=== PATIENT | male | born 1995 | race Caucasian/White ===

== ENCOUNTER 2017-05-07 12:41 | Emergency (ER) | payer OTHER ==
[2017-05-07 13:25] VITALS: RESP 16; TEMP 98.1; O2SAT 96
--- NOTE | 2017-05-07 14:08 | EDPHY ---
H & P Stated Complaint: R scrotal/testicular pain since this am;no inj;no discharge/ dysuria HPI/ROS: CHIEF COMPLAINT: Testicular pain HISTORY OF PRESENT ILLNESS: Patient complains of right testicular pain. This started this morning when he awoke 8:15 a.m.. Constant duration. Currently rated a 4/10. Does not radiate. No dysuria. No urethral discharge. No erythema or edema. No trauma or injury. He is not sexually active, and has not ever had sexual intercourse. No abdominal pain. No flank pain. No other associated complaints or modifying factors. No previous history of torsion. REVIEW OF SYSTEMS: Ten systems reviewed and are negative unless otherwise noted in the HPI PAST MEDICAL HISTORY: Denies any medical history. No previous surgical history SOCIAL HISTORY: Nonsmoker FAMILY HISTORY: Noncontributory EXAMINATION General Appearance: Alert, no distress Head: normocephalic, atraumatic Eyes: Pupils equal and round, no conjunctival pallor or injection ENT, Mouth: Mucous membranes moist Neck: Normal inspection, supple, non-tender Respiratory: No retractions or distress. Cardiovascular: Regular rate and rhythm. Pulses intact distally symmetrically Gastrointestinal: Abdomen is soft and nontender : Normal appearance of the scrotum and penis. No discharge of the urethral meatus. No erythema or edema. Cremasteric reflex is intact symmetrically. Back: non-tender, no bony abnormalities Neurological: A&O, nonfocal, normal gait Skin: Warm and dry, no rash Extremities: Nontender, no pedal edema Psychiatric: Mood and affect normal DIFFERENTIAL DIAGNOSES: Including but not limited to torsion, hydrocele, varicocele, epididymitis MDM: 2:07 p.m. Right testicular pain that started at 8:15 a.m. this morning. Patient denies any sexual activity thus far his life. I have ordered urinalysis as well as stat ultrasound to rule out torsion. 2:30 p.m. Urinalysis is unremarkable. Ultrasound is currently being performed at this time 3:[address] Morrison. Ultrasound of the testicles reveals no torsion. There is a small epididymal cyst. No other acute findings. 3:05 p.m. I have re-evaluated the patient. He is resting comfortably in no acute distress. We discussed the ultrasound urinary study findings. We discussed discharge home follow up with Urology and primary care physician. We also discussed that he should return to ER for any worsening pain, difficulty urinating or flank pain. He is comfortable with this plan, and he is discharged home stable condition. SUPERVISION: Patient was evaluated in conjunction with the supervising physician. Please see their note for details. Source: Patient Exam Limitations: No limitations - Personal History Current Tetanus Diphtheria and Acellular Pertussis (TDAP): Yes - Medical/Surgical History Other PMH: neg per pt - Social History Smoking Status: Never smoked Constitutional: Initial Vital Signs Temperature (C) 98.1 F 05/07/17 13:23 Heart Rate 63 05/07/17 13:23 Respiratory Rate 16 05/07/17 13:23 Blood Pressure 131/69 H 05/07/17 13:23 O2 Sat (%) 96 05/07/17 13:23 O2 Delivery Mode Room Air Allergies/Adverse Reactions: No Known Allergies Allergy (Unverified 05/07/17 13:23) Home Medications: Medication Instructions Recorded NK [No Known Home Meds] 05/07/17 Medical Decision Making - Data Points Laboratory Results: 05/07/17 05/07/17 14:10 14:10 Urine Color PALE YELLOW Urine Appearance CLEAR Urine pH 6.0 (5.0-7.5) Ur Specific [place] 1.005 (1.002-1.030) Urine Protein NEGATIVE (NEGATIVE) Urine Ketones NEGATIVE (NEGATIVE) Urine Blood NEGATIVE (NEGATIVE) Urine Nitrate NEGATIVE (NEGATIVE) Urine Bilirubin NEGATIVE (NEGATIVE) Urine Urobilinogen NEGATIVE EU EU (0.2-1.0) Ur Leukocyte Esterase NEGATIVE (NEGATIVE) Urine RBC 1-3 /hpf /hpf (0-3) Urine WBC 1-3 /hpf /hpf (0-3) Ur Epithelial Cells NONE SEEN /lpf /lpf (NONE-1+) Urine Mucus TRACE /lpf /lpf (NONE-1+) Urine Glucose NEGATIVE (NEGATIVE) C.trachomatis RNA (TMA) Pending N.gonorrhoeae RNA (TMA) Pending Departure - Departure Disposition: Home, Routine, Self-Care Clinical Impression: Testicular pain, right Condition: Good Instructions: Testicle Pain (ED), Scrotal Pain (ED) Referrals: NONE *PRIMARY CARE P,. [Primary Care Provider] - As per Instructions Can Tristan MD [Medical Doctor] - As per Instructions Tiffanie Kohler MD [place] [place] - As per Instructions
[2017-05-07 14:22] LABS: COLOR PALE YELLOW; LEUKOCYTE ESTERASE,URINE NEGATIVE (NEGATIVE); NITRITE,URINE NEGATIVE (NEGATIVE)
[2017-05-07 14:23] LABS: MUCUS TRACE /lpf (NONE-1+)
[2017-05-07 15:30] VITALS: BP 128/78; PULSE 62
[2017-05-08 13:22] LABS: CHLAMYDIA AMPLIFICATION GENPRB NEGATIVE (NEGATIVE)
== END 2017-05-07 15:30 | disposition home or self-care (01) ==
DX: N50.811 Right testicular pain (principal)